=== PATIENT | female | born 1955 | race African-American/Black ===

== ENCOUNTER 2017-03-25 12:44 | Outpatient (CLI) | payer BC ==
--- NOTE | 2017-03-26 14:45 | ULT ---
LOWER EXTREMITY ARTERIAL EVALUATION: Lower extremity arterial evaluation was performed with Doppler waveform analysis and segmental limb pressures. Doppler waveforms were normal throughout both lower extremities with an ankle-arm index of 1.15 on th e right and 1.04 on the left, with normal toe-brachial index bilaterally. This study is a normal resting arterial study of the lower extremities and would not be consistent wi any resting ischemia.
== END 2017-03-25 12:45 | disposition home or self-care (01) ==
LOC: ULT 12:44
PROVIDERS: ATTEND Family Medicine
DX: E11.9 Type 2 diabetes mellitus without complications (principal); G25.81 Restless legs syndrome; I73.9 Peripheral vascular disease, unspecified
CPT/HCPCS: 93922

== ENCOUNTER 2017-04-12 16:07 | Outpatient (CLI) | payer BC | END 2017-04-12 16:08 | disposition home or self-care (01) | LOC: BICMAMMO 16:07 | PROVIDERS: ATTEND Family Medicine | DX: Z12.31 Encounter for screening mammogram for malignant neoplasm of breast (principal); Z80.3 Family history of malignant neoplasm of breast | CPT/HCPCS: 77063; 77067 ==

== ENCOUNTER 2017-07-12 12:17 | Outpatient (CLI) | payer BC | END 2017-07-12 12:18 | disposition home or self-care (01) | LOC: BICULT 12:17 | PROVIDERS: ATTEND Urology | DX: N20.0 Calculus of kidney (principal); N26.1 Atrophy of kidney (terminal) | CPT/HCPCS: 74018; 76770 ==

== ENCOUNTER 2018-01-17 08:28 | Outpatient (CLI) | payer BC ==
[2018-01-17] MEDS ORDERED: ISOVUE-370 76%-LOCM 1 ML ONE (10:59)
--- NOTE | 2018-01-17 11:57 | CT ---
CT ABDOMEN AND PELVIS WITH AND WITHOUT IV CONTRAST: HISTORY: Nonfunctioning left kidney. UTI. Kidney stones. COMPARISON: CT stone protocol from 11/04/2016. FINDINGS: There are minimal dependent changes in the lung bases. No calcified gallstones are seen. The liver, spleen, pancreas, and adrenal glands are normal. The left kidney is atrophic and contains calculi. There is a 14 mm calculus at the left UPJ, which w as also seen on the previous study. There are tiny low density lesions in the right renal cortex, to o small to characterize, but likely cysts. No enhancing renal mass is seen. There is normal contras t excretion into the right ureter and urinary bladder. No right-sided hydroureteronephrosis is noted . No free air, free fluid, or lymphadenopathy is seen in the abdomen or pelvis. There are vascular purnima cifications without evidence of aneurysmal dilatation of the abdominal aorta. There are degenerative changes with levoscoliosis of the lumbar spine. The patient is post hysterectomy. IMPRESSION: 1. Atrophic left kidney with left renal calculi and ureteropelvic junction calculus. 2. Probable tiny right renal cyst. POS: [facility]
== END 2018-01-17 08:29 | disposition home or self-care (01) ==
LOC: BICCT 08:28
PROVIDERS: ATTEND Urology
DX: N20.0 Calculus of kidney (principal); N39.0 Urinary tract infection, site not specified; N28.9 Disorder of kidney and ureter, unspecified; E13.9 Other specified diabetes mellitus without complications; R81 Glycosuria; N26.1 Atrophy of kidney (terminal)
CPT/HCPCS: 74178

== ENCOUNTER 2018-09-30 11:22 | Outpatient (CLI) | payer BC ==
--- NOTE | 2018-09-30 12:14 | RAD ---
LUMBAR SPINE 3 VIEWS: 09/30/2018 COMPARISON: 11/23/2016. HISTORY: Sciatica. FINDINGS: There is stable prominent rotolevoscoliosis of the lumbar spine centered at L3. There appea r to be 6 lumbar type vertebral bodies. There is a calcification within the left upper abdomen medially measuring 1.4 cm. This may represent a prominent left renal calculus. There is prominent multilevel degenerative disc disease, most significant at L3-4 on the right and L5 -6 on the left. There is associated lateral osteophyte formation in these regions. Lateral imaging demonstrates no significant anterolisthesis or retrolisthesis. There is multilevel lower lumbar spine facet hypertrophy. No acute osseous abnormality. IMPRESSION: Prominent scoliosis of the lumbar spine with stable prominent degenerative changes as det darshana above. No acute osseous abnormality is noted. No significant interval change. Transcribed Date/Time: 09/30/2018 12:17 PM
== END 2018-09-30 11:23 | disposition home or self-care (01) ==
LOC: RAD 11:22
PROVIDERS: ATTEND Family Medicine
DX: R29.898 Other symptoms and signs involving the musculoskeletal system (principal); M41.9 Scoliosis, unspecified; M47.816 Spondylosis without myelopathy or radiculopathy, lumbar region
CPT/HCPCS: 72100

== ENCOUNTER 2019-04-17 13:51 | Outpatient (CLI) | payer BC ==
--- NOTE | 2019-04-17 15:23 | RAD ---
LEFT KNEE 4 VIEWS: Date: 04/17/2019 HISTORY: Anterior knee pain. No history of injury. FINDINGS: There is moderate arthritic change of the knee. There is medial and lateral compartment joint space n arrowing and spur formation, as well as some mild patellofemoral degenerative change. No acute injury . IMPRESSION: Moderate arthritic changes of the knee. POS: [facility]
--- NOTE | 2019-04-17 15:24 | RAD ---
RIGHT KNEE 4 VIEWS: Date: 04/17/2019 HISTORY: Knee pain. FINDINGS: There is some mild to moderate medial compartment joint space narrowing. There is minimal patellofemo ral spur formation. IMPRESSION: Mild arthritic changes of the knee, mainly related to some medial compartment joint space narrowing. POS: [facility]
== END 2019-04-17 13:52 | disposition home or self-care (01) ==
LOC: BICRAD 13:51
PROVIDERS: ATTEND Family Medicine
DX: M25.562 Pain in left knee (principal); M23.8X1 Other internal derangements of right knee; M17.0 Bilateral primary osteoarthritis of knee
CPT/HCPCS: 36415; 83021; 83540; 83550; 85046

== ENCOUNTER 2019-05-16 08:08 | Outpatient (CLI) | payer BC ==
--- NOTE | 2019-05-16 08:43 | MMO ---
Bilateral MAMMO Bilat Screen [facility]. CLINICAL HISTORY: Patient is 63 years old and is seen for screening. The patient has the following family history of breast cancer: cousin female. The patient has no personal history of cancer. VIEWS: The views performed were: bilateral craniocaudal with tomosynthesis and bilateral mediolateral oblique with tomosynthesis. FILMS COMPARED: The present examination has been compared to prior imaging studies performed at [facility] on 03/29/2014, 04/04/2015, 04/08/2016 and 04/12/2017. This study has been interpreted with the assistance of computer-aided detection. MAMMOGRAM FINDINGS: There are no suspicious masses, suspicious calcifications, or new areas of architectural distortion. IMPRESSION: THERE IS NO MAMMOGRAPHIC EVIDENCE OF MALIGNANCY. A ROUTINE FOLLOW-UP MAMMOGRAM IN 1 YEAR IS RECOMMENDED. THE RESULTS OF THIS EXAM WERE SENT TO THE PATIENT. ACR BI-RADS Category 1 - Negative MAMMOGRAPHY NOTE: 1. A negative mammogram report should not delay a biopsy if a dominant of clinically suspicious mass is present. 2. Approximately 10% to 15% of breast cancers are not detected by mammography. 3. Adenosis and dense breasts may obscure an underlying neoplasm. Reported by: SHAI BRICENO MD Electonically Signed: [id number]
== END 2019-05-16 08:09 | disposition home or self-care (01) ==
LOC: BICMAMMO 08:08
PROVIDERS: ATTEND Family Medicine
DX: Z12.31 Encounter for screening mammogram for malignant neoplasm of breast (principal); Z80.3 Family history of malignant neoplasm of breast
CPT/HCPCS: 77063; 77067

== ENCOUNTER 2019-07-31 00:39 | Emergency (ER) | payer BC ==
[2019-07-31] MEDS ORDERED: Morphine 4 MG/ML VIAL ONE (01:11)
[2019-07-31] MEDS ORDERED: Ondansetron PF 4 MG/2 ML Vial ONE (01:11)
[2019-07-31 01:25] LABS: #Eosinphils 0.1 thou/uL (0.0-0.7); #Lymphocytes 1.2 thou/uL (1.20-3.40); #Monocytes 0.3 thou/uL (0.11-0.59); #Neutrophils 5.5 thou/uL (1.40-6.50); %Basophils 0.2 % (0.0-1.0); %Eosinophils 1.7 % (0.0-10.0); %Lymphocytes 16.3 % (21.0-51.0); %Monocytes 4.4 % (0.0-10.0); %Neutrophils 77.4 % (42.0-75.0); Hemoglobin 11.7 g/dL (12.0-16.0); Mean Corpuscular HGB CONC 30.5 g/dL (32.0-36.0); Mean Corpuscular Hemoglobin 24.1 pg (27.0-31.0); Mean Platelet Volume 10.8 fL (7.4-10.4); Platelet Count 153 thou/uL (130-400); RBC Distribution Width 14.7 % (11.5-14.5); Red Blood Cell (RBC) Count 4.85 mill/uL (4.20-5.40); White Blood Cell (WBC) Count 7.1 thou/uL (4.8-10.8)
[2019-07-31 01:45] LABS: ALT (SGPT) 7 U/L (8-55); AST (SGOT) 12 U/L (5-34); Albumin 4.1 g/dL (3.4-4.8); Alkaline Phosphatase 74 U/L (40-110); Anion Gap 12 mmol/L (10-20); BUN (Urea Nitrogen) 17 mg/dL (9.8-20.1); Bilirubin, Total 0.2 mg/dL (0.2-1.2); Calc. Creatinine Clearance 0 mL/min (70-130); Carbon Dioxide 27 mmol/L (23-31); Chloride 104 mmol/L (98-107); Estimated GFR-MDRD 77; Globulin 3.6 g/dL (2.4-3.5); Glucose 226 mg/dL (80-115); Potassium 3.9 mmol/L (3.5-5.1); Protein, Total 7.7 g/dL (6.0-8.3); Sodium 139 mmol/L (136-145)
[2019-07-31 03:16] LABS: Bacteria/HPF None Seen HPF (None Seen); Bilirubin Negative (Negative); Blood, Urine Trace (Negative); Clarity Clear (Clear); Glucose, Urine (Dipstick) 70 mg/dL (Negative); Leukocyte 500 Leu/uL (Negative); Nitrite 1+ (Negative); Protein, Urine (Dipstick) 10 mg/dL (Neg-Trace); RBC/HPF 21-50 HPF (0-3); Urobilinogen Normal mg/dL (Less than 2); WBC/HPF Greater than 50 HPF (0-3)
--- NOTE | 2019-07-31 07:52 | CT ---
PRELIMINARY REPORT/[facility]/EMERGENCY AFTER HOURS PROCEDURE Receipt of this report by the clinical staff was confirmed with SUSAN THRASHER MD by Byron Estrada on Jul 31, 2019 01:50:00 CDT. Addendum electronically signed by Guillermina Estrada on July 31, 2019 1:51:01 AM CDT EXAM: CT ABDOMEN PELVIS W CON HISTORY: Pt c/o RLQ abdominal pain/ right flank; nausea, vomiting, diarrhea; Surgical history of hyst erectomy. PAST MEDICAL HX OF ONE FUNCTIONING KIDNEY. COMPARISON: [facility] - CT ABDOMEN PELVIS W WO CON - 01/17/2018 08:53 AM HEAD USHER FINDINGS: Bibasilar atelectasis versus scarring. No pleural effusion. No pericardial effusion. Wedge-shaped region of enhancement at the lateral aspect of the right hepatic lobe (image 23 of serie s 2 and image 91 of series 601). No intrahepatic ductal dilatation. Gallbladder is unremarkable. Portal system is patent. No acute abnormality of the spleen or pancreas. No adrenal nodule. Stable left-sided diffuse renal cortical atrophy with calcification at the left UPJ. No right-sided renal or ureteral stone. Bladder is fluid-filled. No bowel obstruction. No mural thickening. Appendix is normal. No focal fluid collections within the abdomen or pelvis. No intraperitoneal free air. Descending abdominal aorta is without aneurysm. Vascular calcifications are evident. Moderate levoconvex curvature of the lumbar spine with associated degenerative changes. No acute osseous abnormality. Subcutaneous soft tissues are unremarkable. IMPRESSION: 1. No acute intra-abdominal pathology. No evidence for acute appendicitis. 2. Wedge-shaped region of enhancement at the right hepatic lobe, the morphology of which suggests tr ansient hepatic enhancement differences. Recommend confirmation with three-phase liver protocol CT or MRI on a nonemergent basis. 3. Additional degenerative and senescent changes, as above. ELECTRONICALLY SIGNED BY: Adry Burnham MD Jul 31, 2019 1:47:40 AM CDT This report is intended for review by the ordering physician only, in accordance of law. If you recei ve this report in error, please call [facility] at [phone]. FINAL REPORT Emergent after hours CT abdomen and pelvis with IV contrast HISTORY: Right lower quadrant abdominal pain and right flank pain. Nausea, vomiting, and diarrhea. COMPARISON: 01/17/2018 IMPRESSION: 1. Wedge-shaped area of enhancement in the lateral aspect of the right hepatic lobe which is most lik niko secondary to transient hepatic attenuation difference. However, follow-up three-phase CT abdomen versus MRI is recommended. 2. Stable atrophic left kidney with stable calculus proximal left ureter and nonobstructing left gianna l calculi. Diminished enhancement of the left kidney is present with renal cortical thinning as well. Right kidney has a normal CT appearance. 3. Evidence of hysterectomy. 4. Prominent left convex scoliosis thoracolumbar spine with degenerative changes in the spine. 5. No acute findings are seen in the abdomen or pelvis. 6. Findings are in agreement with the preliminary report by [facility]. Transcribed Date/Time: 07/31/2019 7:57 AM
[2019-07-31] MEDS ORDERED: Iopamidol-370 76% 500 ML 1 ML ONE (09:42)
== END 2019-07-31 03:49 | disposition home or self-care (01) ==
LOC: ERS 00:39
DX: N39.0 Urinary tract infection, site not specified (principal); E11.9 Type 2 diabetes mellitus without complications; R11.2 Nausea with vomiting, unspecified; Z79.899 Other long term (current) drug therapy; Z79.84 Long term (current) use of oral hypoglycemic drugs
CPT/HCPCS: 74177; 80053; 81003; 81015; 85025; 96374; 96375; J2270; J2405; Q9967

== ENCOUNTER 2019-09-14 11:00 | Outpatient (CLI) | payer BC ==
--- NOTE | 2019-09-14 12:20 | CT ---
CT STONE PROTOCOL: HISTORY: Ureteral stone, nonfunctioning kidney, cystitis. COMPARISON: 07/31/2019. FINDINGS: Absence of oral and IV contrast reduces the sensitivity of exam, particularly for the evaluation of s olid organs involved. The lung bases are unremarkable. No free air or free fluid is seen in the abdomen or pelvis. No purnima cified gallstones are seen. Atrophic left kidney with left renal calculi measuring up 3 mm and 12 mm calculus at the left uretero pelvic junction are again seen and stable. No calculi are seen in the right kidney, right ureter, or the urinary bladder. No hydroureteral nephrosis is noted. There are vascular calcifications without evidence of aneurysmal dilatation of the abdominal aorta. There are degenerative changes with levoscoliosis of the lumbar spine. IMPRESSION: Stable left renal atrophy and calculi in the left kidney and ureteropelvic junction. No evidence of high-grade obstruction. POS: [facility]
== END 2019-09-14 11:01 | disposition home or self-care (01) ==
LOC: BICCT 11:00
PROVIDERS: ATTEND Urology
DX: N30.90 Cystitis, unspecified without hematuria (principal); N20.2 Calculus of kidney with calculus of ureter; N28.9 Disorder of kidney and ureter, unspecified; N26.1 Atrophy of kidney (terminal)
CPT/HCPCS: 74176

== ENCOUNTER 2020-02-13 06:49 | Outpatient (CLI) | payer BC ==
--- NOTE | 2020-02-13 07:42 | ULT ---
Venous duplex sonogram bilateral lower extremity HISTORY: Elevated d-dimer. Bilateral leg pain and edema. FINDINGS: Each common femoral vein and greater saphenous junction were evaluated along with each femo ral, deep femoral, popliteal, and posterior tibial vein. There is good color and spectral Doppler flow, compression, and augmentation. IMPRESSION : Normal exam.
== END 2020-02-13 06:50 | disposition home or self-care (01) ==
LOC: BICULT 06:49
PROVIDERS: ATTEND Nurse Practitioner Family
DX: R79.89 Other specified abnormal findings of blood chemistry (principal)
CPT/HCPCS: 36415; 80048; 81001; 83036; 87086; 93970

== ENCOUNTER 2020-06-26 14:13 | Outpatient (CLI) | payer BC | END 2020-06-26 14:14 | disposition home or self-care (01) | LOC: BICMAMMO 14:13 | PROVIDERS: ATTEND Nurse Practitioner Family | DX: Z12.31 Encounter for screening mammogram for malignant neoplasm of breast (principal); Z80.3 Family history of malignant neoplasm of breast | CPT/HCPCS: 77063; 77067 ==

== ENCOUNTER 2020-08-14 09:53 | Outpatient (CLI) | payer BC | END 2020-08-14 09:54 | disposition home or self-care (01) | LOC: BICRAD 09:53 | PROVIDERS: ATTEND Urology | DX: N28.9 Disorder of kidney and ureter, unspecified (principal); N20.2 Calculus of kidney with calculus of ureter | CPT/HCPCS: 74018 ==

== ENCOUNTER 2020-08-21 12:49 | Outpatient (CLI) | payer BC | END 2020-08-21 12:50 | disposition home or self-care (01) | LOC: BICULT 12:49 | PROVIDERS: ATTEND Urology | DX: N20.2 Calculus of kidney with calculus of ureter (principal); N26.1 Atrophy of kidney (terminal); N28.89 Other specified disorders of kidney and ureter; N13.30 Unspecified hydronephrosis | CPT/HCPCS: 76770 ==

== ENCOUNTER 2020-09-03 07:13 | Outpatient (CLI) | payer BC ==
[2020-09-03] MEDS ORDERED: Iopamidol-370 76% 500 ML 1 ML ONE (09:21)
== END 2020-09-03 07:14 | disposition home or self-care (01) ==
LOC: BICCT 07:13
PROVIDERS: ATTEND Urology
DX: N20.2 Calculus of kidney with calculus of ureter (principal); N28.89 Other specified disorders of kidney and ureter
CPT/HCPCS: 74178; Q9967

== ENCOUNTER 2021-07-02 12:27 | Outpatient (CLI) | payer BC | END 2021-07-02 12:28 | disposition home or self-care (01) | LOC: BICMAMMO 12:27 | PROVIDERS: ATTEND Nurse Practitioner Family | DX: Z12.31 Encounter for screening mammogram for malignant neoplasm of breast (principal); Z80.3 Family history of malignant neoplasm of breast | CPT/HCPCS: 77063; 77067 ==

== ENCOUNTER 2021-08-07 12:21 | Outpatient (CLI) | payer BC | END 2021-08-07 12:22 | disposition home or self-care (01) | LOC: BICULT 12:21 | PROVIDERS: ATTEND Urology | DX: N30.90 Cystitis, unspecified without hematuria (principal); N28.9 Disorder of kidney and ureter, unspecified; N28.1 Cyst of kidney, acquired; N20.2 Calculus of kidney with calculus of ureter | CPT/HCPCS: 74018; 76770 ==

== ENCOUNTER 2022-08-17 07:33 | Outpatient (CLI) | payer BC | END 2022-08-17 07:34 | disposition home or self-care (01) | LOC: ULT 07:33 | PROVIDERS: ATTEND Urology | DX: N30.90 Cystitis, unspecified without hematuria (principal); N28.9 Disorder of kidney and ureter, unspecified; N20.1 Calculus of ureter; N20.0 Calculus of kidney; N28.1 Cyst of kidney, acquired | CPT/HCPCS: 74018; 76770 ==

== ENCOUNTER 2024-02-15 08:51 | Outpatient (CLI) | payer OTHER | END 2024-02-15 08:52 | disposition home or self-care (01) | LOC: ULT 08:51 | PROVIDERS: ATTEND Urology | DX: N30.90 Cystitis, unspecified without hematuria (principal); N28.9 Disorder of kidney and ureter, unspecified; E13.9 Other specified diabetes mellitus without complications; N20.0 Calculus of kidney; N28.1 Cyst of kidney, acquired; M41.9 Scoliosis, unspecified; R81 Glycosuria | CPT/HCPCS: 76770 ==